=== PATIENT | female | born 1985 | race Hispanic/Latino ===

== ENCOUNTER 2017-08-13 19:19 | Emergency (ER) | payer BC ==
[2017-08-13 19:44] VITALS: RESP 18; O2SAT 99
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
[2017-08-13 21:13] VITALS: BP 148/84; PULSE 88; TEMP 98.8
== END 2017-08-13 20:26 | disposition home or self-care (01) ==
LOC: SUPCPDRO 19:19 → C.ER 19:19
DX: F07.81 Postconcussional syndrome (principal)